=== PATIENT | female | born 1940 | race Caucasian/White ===

== ENCOUNTER 2017-05-25 11:28 | Day surgery (SDC) | payer MEDICARE, OTHER ==
[~2017-05-25] VITALS: Ht 144.8 cm; Wt 59.3 kg
[~2017-05-25 11:28] MED LIST: ALEN40TA2 PO; BENA40TA41 PO; CALC1TAB80 PO; CELE200C PO; DIPH50TA5 PO; DOXA2TAB PO; LEVO75TA5 PO; LORA10TA3 PO; OMEP20CA16 PO; SIMV20TA2 PO
[2017-05-25 11:51] VITALS: Ht 144.8 cm; Wt 59.3 kg
[2017-05-25] MEDS ORDERED: PROPOFOL 20 ML ONE (12:00)
[2017-05-25 12:07] VITALS: BP 162/70; PULSE 68; RESP 21
--- NOTE | 2017-05-25 12:24 | OPPN ---
Date/Time of Note Date/Time of Note DATE: 05/25/17 TIME: 12:22 Operative Report Preoperative Diagnosis Chronic heartburn Postoperative Diagnosis Hiatal hernia Reflux esophagitis Gastritis with erosions Operation/Procedure Performed Esophagogastroduodenoscopy and biopsy Surgeon see signature line food and nutrition services assistant None Anesthesia: MAC Estimated blood loss: none Transfusion Required none Specimen Gastric mucosal biopsy Grafts/Implants none Complications none VERONIKA GRIFFITHS MD May 25, 2017 12:24
[2017-05-25 12:50] VITALS: BP 122/76; RESP 14
[2017-05-25 12:52] VITALS: BP 122/76; PULSE 66; RESP 14
--- NOTE | 2017-05-25 16:00 | GILP ---
DATE OF PROCEDURE: 05/25/2017 PROCEDURE PERFORMED: Esophagogastroduodenoscopy and biopsy. SURGEON: Solomon Belle MD. PREOPERATIVE DIAGNOSIS: Chronic heartburn. POSTOPERATIVE DIAGNOSES: 1. Hiatal hernia. 2. Reflux esophagitis. 3. Gastritis with erosions. 4. Gastric mucosal biopsies were taken for Helicobacter pylori test. INDICATION: Ms. Juliann Rodriguez is a 77-year-old female patient who had severe heartburn not responding to therapy. The patient was scheduled for endoscopy examination for further evaluation. The procedure and possible complications were well explained to the patient. She understood and consented to the procedure. DESCRIPTION OF PROCEDURE: Under the influence of anesthesia, the gastroscope was carefully introduced into the esophagus. Under direct vision, it was advanced to the stomach, into the pylorus, into the duodenal bulb, and descending duodenum. FINDINGS: Esophagus, the patient had a hiatal hernia with reflux esophagitis. Stomach, she had gastritis with erosions. Gastric mucosal biopsies were taken for Helicobacter pylori test. Duodenum was normal. She tolerated the procedure very well, and there were no complications from the procedure. At the end of procedure, she was awake with stable vital signs and she was discharged home in the care of her family. IMPRESSION: Please see postop diagnoses. 1. Dexilant 60 mg p.o. q.a.m. 2. Await Helicobacter pylori test report. Dictated By: MD YULY Amezquita/[email or web address] /Document#: [id number]
== END 2017-05-25 13:13 | disposition home or self-care (01) ==
LOC: GIL 11:28
PROVIDERS: ATTEND Internal Medicine Gastroenterology
DX: K44.9 Diaphragmatic hernia without obstruction or gangrene (principal); K21.0 Gastro-esophageal reflux disease with esophagitis; K29.60 Other gastritis without bleeding; I10 Essential (primary) hypertension; E78.5 Hyperlipidemia, unspecified; E03.9 Hypothyroidism, unspecified
CPT/HCPCS: 87081